=== PATIENT | female | born 1960 | race Caucasian/White ===

== ENCOUNTER → 2016-10-28 | Outpatient (CLI) | payer BC | LOC: RAD 11:29 | DX: M54.9 Dorsalgia, unspecified (principal); M47.812 Spondylosis without myelopathy or radiculopathy, cervical region; M48.02 Spinal stenosis, cervical region | CPT/HCPCS: 72050; 73030 ==

== ENCOUNTER → 2021-09-04 | Outpatient (CLI) | payer BC | LOC: RAD 07:41 | DX: K44.9 Diaphragmatic hernia without obstruction or gangrene (principal); K21.9 Gastro-esophageal reflux disease without esophagitis | CPT/HCPCS: 74246 ==

== ENCOUNTER → 2022-03-14 | Outpatient (CLI) | payer BC | LOC: KOH-I 12:42 | DX: M25.512 Pain in left shoulder (principal) | CPT/HCPCS: 73030 ==